=== PATIENT | male | born 1995 | race Caucasian/White ===

== ENCOUNTER 2018-01-30 11:35 | Emergency (ER) | payer OTHER ==
[~2018-01-30] VITALS: Ht 172.7 cm; Wt 61.4 kg
[2018-01-30] MEDS ORDERED: PERTUSS(ACELL),DIPH,TET VAC/PF 0.5 ML VIAL IM ONE (12:15)
[2018-01-30] MEDS ORDERED: LIDOCAINE HCL 1% 10 ML VIAL INJ ONE (12:15)
[2018-01-30] MEDS ORDERED: IBUPROFEN 800 MG TABLET PO ONE (12:15)
[2018-01-30 13:19] VITALS: BP 116/72
== END 2018-01-30 13:37 | disposition home or self-care (01) ==
LOC: EMS 11:37
DX: S61.012A Laceration without foreign body of left thumb without damage to nail, initial encounter (principal); W45.8XXA Other foreign body or object entering through skin, initial encounter; Y93.89 Activity, other specified; Y92.89 Other specified places as the place of occurrence of the external cause; Y99.8 Other external cause status
CPT/HCPCS: 12001; 90471; 90715; 99283; J3490

== ENCOUNTER 2018-02-05 15:53 | Emergency (ER) | payer OTHER ==
[~2018-02-05] VITALS: Ht 172.7 cm; Wt 61.4 kg
[2018-02-05 16:08] VITALS: BP 124/66
== END 2018-02-05 16:37 | disposition home or self-care (01) ==
LOC: EMS 15:53
DX: Z48.02 Encounter for removal of sutures (principal)
CPT/HCPCS: 99281